=== PATIENT | female | born 1990 | race Caucasian/White ===

== ENCOUNTER 2020-05-18 16:29 | Emergency (ER) | payer MEDICAID, SELFPAY ==
[2020-05-18 16:38] VITALS: BP 134/78; PULSE 107; RESP 16; TEMP 36.6; O2SAT 98
--- NOTE | 2020-05-18 16:50 | W.ED.GENAD ---
Discharge Plan Disposition Patient Disposition: HOME Condition: Stable Discharge Details Clinical Impression: Acute streptococcal pharyngitis Primary Care Provider: Flora Esquivel ED Provider: Mecca Carlson Home Meds and New Rx's Prescriptions: New amoxicillin 500 mg capsule 500 mg PO BID 9 Days Qty: 18 RF: 0 Continued multivitamin Capsule 1 cap PO DAILY RF: 0 Discharge Instructions Instructions: Pharyngitis (ED), Strep Throat (ED) Additional Instructions: Drink plenty of fluids and get plenty of rest. Alternate tylenol and motrin as needed and directed for pain. Take antibiotics until finished. Follow-up with your primary care doctor in 1 week. Return to the emergency department with any worsening or new concerning symptoms. Stand Alone Forms: Work Release Discharge Data Discharge Date/Time-TO BE ENTERED AT DEPARTURE: 05/18/20 17:36 Discharge Physician: Mecca Carlson Medical Decision Making 30-year-old female presents with sore throat and feeling feverish since Sunday. Recent positive sick contact with strep. Rapid strep obtained upon arrival prior to my evaluation and positive. Patient appears uncomfortable but nontoxic. She has bilateral tonsillar edema, erythema and exudates. Uvula is midline and no evidence of peritonsillar abscess, submandibular swelling, drooling, trismus. Due to significant tonsillar edema, will give 1 dose of Decadron. Will obtain urine test and give a dose of amoxicillin here and for home as well as a prescription. Advised to follow up with the primary care doctor for re-evaluation. Usual and customary return precautions given prior to discharge. Medical Records Medical records reviewed: Yes I reviewed the patient's medical records. HPI General Mode of arrival: ambulatory. Date/Time Provider Initiated Documentation: 05/18/20 16:49. Limitations to Documentation: no limitations. Information obtained by: patient. HPI Narrative: Patient is a 30-year-old female who presents with sore throat since yesterday. She had a recent exposure to her boyfriend who was diagnosed with strep throat. She states she has been able to swallow but with pain. She denies any cough. Related Data Home Medications Medication Instructions Recorded Confirmed multivitamin 1 cap PO DAILY 03/11/19 05/18/20 amoxicillin 500 mg PO BID 9 Days #18 cap 05/18/20 Previous Rx's Medication Instructions Recorded amoxicillin 500 mg PO BID 9 Days #18 cap 05/18/20 Allergies Allergy/AdvReac Type Severity Reaction Status Date / Time nickel Allergy Intermediate rash Verified 05/18/20 16:43 General Stated Complaint: Sorethroat ONEYDA: 4 Review of Systems All systems reviewed & are unremarkable except as noted in HPI and below Constitutional Constitutional: Reports as per HPI, Denies chills and Denies fever(s) Eyes Eyes: Denies blurry vision ENT Ears, Nose, Mouth, and Throat: Denies dizziness, Reports sore throat and Denies throat swelling Cardiovascular Cardiovascular: Denies chest pain and Denies dyspnea Respiratory Respiratory: Denies cough and Denies dyspnea Gastrointestinal Gastrointestinal: Denies abdominal pain, Denies diarrhea and Denies vomiting Genitourinary Genitourinary: Denies hematuria and Denies dysuria Musculoskeletal Musculoskeletal: Denies back pain and Denies numbness Integumentary/Breasts Skin/Breast: Denies lesions and Denies rash Neurologic Neurologic: Denies dizziness, Denies localized weakness and Denies numbness Allergic/Immunologic Allergic/Immunologic: Denies throat swelling PFSH Medical History (Updated 05/18/20 @ 18:35 by Mecca Carlson DO) Mastodynia of left breast Surgical History (Updated 05/18/20 @ 18:35 by Mecca Carlson DO) No significant past surgical history Family History Father Unknown family medical history Mother Unknown family medical history Son Diabetes type 1 Social History Smoking/Tobacco Use Status: Current every day Tobacco: How many years used: 1 Smoking risk assessment performed?: Yes Alcohol Intake: current Alcohol Intake frequency: a few times a week Drug use: Never Do you feel safe at home: Yes Do you feel safe in your relationship?: Yes History History 4 Para Hx # Term Pregnancies 3 Multiple births Hx # Pregnancies Ectopic pregnancies AB induced 1 Hx Number of Living Children AB spontaneous Exam Const General: cooperative, healthy appearing and no acute distress HENMT Head: normal to inspection Ears: hearing grossly normal bilaterally, external ears normal and TM's normal bilaterally General nose exam: external nose normal Mouth: oral mucosae normal Throat: uvula midline and posterior oropharynx abnormal edema (Moderate to severe, near kissing), erythema and exudates Eyes General: appearance normal, both eyes and all related structures Neck Neck: normal visual inspection, no meningeal signs, trachea midline, supple, no anterior neck swelling and No submandibular swelling Resp Effort & Inspection: normal respiratory effort and able to speak in complete sentences Cardio Rate: regular rate Skin General skin exam: no rashes or lesions noted Neuro General: patient alert, patient awake and patient oriented x3 Motor: muscle tone normal throughout Extrem General: normal to inspection and full ROM Psych Appearance: grossly normal Affect: normal affect Course Vital Signs Vital signs: Vital Signs Temperature 97.9 F 05/18/20 16:38 Pulse 107 H 05/18/20 16:38 Respiratory Rate 16 05/18/20 16:38 Blood Pressure 134/78 05/18/20 16:38 Pulse Oximetry 98 05/18/20 16:38 Temperature 97.9 F 05/18/20 16:38 Temperature Source Skin 05/18/20 16:38 Pulse 107 H 05/18/20 16:38 Respiratory Rate 16 05/18/20 16:38 Respiratory Effort Non-Labored 05/18/20 16:44 Blood Pressure 134/78 05/18/20 16:38 Blood Pressure Position Sitting 05/18/20 16:38 Pulse Oximetry 98 05/18/20 16:38 Oxygen Delivery Method Room Air 05/18/20 16:38 Oxygen Flow Rate 0 05/18/20 16:38 Pain Level 8 05/18/20 16:38 Lab/Test Results Lab/Test Results: POC Strep Test-JOANIE(Rapid) Start: 05/18/20 16:44 Freq: Status: Active Protocol: Document 05/18/20 16:44 MCG (Rec: 05/18/20 16:44 [id number] Strep test-JOANIE(Rapid)-POC POC-Strep test-JOANIE (Rapid) Positive POC-Strep test-JOANIE (Rapid) Positive
[2020-05-18] MEDS: Amoxicillin 500 MG CAP PO ×2 (17:14)
[2020-05-18] MEDS: Dexamethasone 10 MG/ML VIAL PO (17:14)
== END 2020-05-18 17:36 | disposition home or self-care (01) ==
PROVIDERS: Emergency Provider Physician Assistant; PCP Physician Assistant Medical
DX: J02.0 Streptococcal pharyngitis (principal); B95.5 Unspecified streptococcus as the cause of diseases classified elsewhere; Z72.0 Tobacco use
CPT/HCPCS: 87880; 99283; J1100

== ENCOUNTER 2020-09-27 16:41 | Outpatient (REF) | payer MEDICAID, SELFPAY ==
[2020-09-29 13:29] LABS: Chlamydia Result Negative (Negative); GC Result Negative (Negative)
== END 2020-09-27 16:42 | disposition home or self-care (01) ==
LOC: LBN 16:41
PROVIDERS: PCP Physician Assistant Medical; Visit Provider Nurse Practitioner Women's Health
DX: Z11.3 Encounter for screening for infections with a predominantly sexual mode of transmission (principal)
CPT/HCPCS: 87491; 87591

== ENCOUNTER 2022-02-03 14:41 | Outpatient (REF) | payer MEDICAID, SELFPAY ==
[2022-02-03 21:25] LABS: Abs Immature Grans 0.02 10^3/uL (0.0-0.06); Absolute Basophil Count 0.09 10^3/uL (0.0-0.2); Absolute Eosinophil Count 0.59 10^3/uL (0.0-0.7); Absolute Lymphocyte Count 1.89 10^3/uL (1.2-3.4); Absolute Monocyte Count 0.64 10^3/uL (0.1-0.8); Absolute Neutrophil Count 4.61 10^3/uL (1.2-6.7); Basophils % 1.1; Eosinophils % 7.5; HCT 42.9 % (36.0-46.0); HGB 14.1 g/dL (11.2-15.7); Immature Grans % 0.3; Lymphocytes % 24.1; MCHC 32.9 % (32.0-36.0); MCV 88 fL (80-95); MPV 11.8 fL (8.0-11.0); Monocytes % 8.2; Neutrophils % 58.8; Platelet Count 314 10^3/uL (130-400); RBC 4.86 10^6/uL (3.93-5.22); RDW 12.3 % (11.7-14.6); RDW-SD 39.9 fL; WBC 7.84 10^3/uL (4.4-10.8)
[2022-02-03 21:58] LABS: ALT 20 U/L (14-59); AST 14 U/L (15-37); Albumin 4.1 g/dL (3.4-5.0); Alkaline Phosphatase 52 U/L (46-116); Anion Gap 7.4 mmol/L (3-11); BUN 9 mg/dL (7-18); Bilirubin, Total 0.6 mg/dL (0.2-1.0); CO2 27.6 mmol/L (21.0-32.0); CREATININE 0.7 mg/dL (0.55-1.02); Calcium 8.8 mg/dL (8.5-10.1); Chloride 104 mmol/L (98-107); Estimated GFR 117.77 (mL/min/1.73m2); Glucose 87 mg/dL (74-106); Potassium 4.2 mmol/L (3.5-5.1); Sodium 139 mmol/L (136-145); TSH (W/Ref FT4) 0.94 uIU/mL (0.36-3.74); Total Protein 7.8 g/dL (6.4-8.2)
[2022-02-06 11:18] LABS: Lyme Ab w Rflx to Lyme Confirm Negative (Negative)
[2022-02-08 17:15] LABS: Anaplasma phagocytophilum Negative (Negative); B. miyamotoi PCR Negative (Negative); Babesia divergens/MO-1 Negative (Negative); Babesia duncani Negative (Negative); Babesia microti Negative (Negative); Ehrlichia chaffeensis Negative (Negative); Ehrlichia ewingii/canis Negative (Negative); Ehrlichia muris eauclairensis Negative (Negative)
== END 2022-02-03 14:42 | disposition home or self-care (01) ==
LOC: LBN 14:41
PROVIDERS: PCP Physician Assistant Medical; Visit Provider Physician Assistant
DX: J02.9 Acute pharyngitis, unspecified (principal); R53.83 Other fatigue; R51.9 Headache, unspecified; M25.59 Pain in other specified joint; R79.89 Other specified abnormal findings of blood chemistry
CPT/HCPCS: 80053; 87798; 83036; 84443; 85025; 86618; 87070

== ENCOUNTER 2022-04-11 01:36 | Outpatient (CLI) | payer MEDICAID, SELFPAY ==
[2022-04-11] MEDS: Normal Saline Flush 10 ML SYR IVP (13:09)
[2022-04-11] MEDS: Gadoterate meglumine 20 ML SYRINGE 18 ML IVP (13:10)
--- NOTE | 2022-04-11 13:45 | DI.MRI_ITS ---
Exam(s) MR BRAIN WO/W EXAM: MR BRAIN WO/W CLINICAL HISTORY: Increased frequency of AU's, rapid vision changes,h53.9,r51.9 TECHNIQUE: Multiplanar multisequence MRI of the brain was performed. CONTRAST MATERIAL: IV Contrast: 18 mL of Dotarem contrast administered. COMPARISON: No exams were available for comparison FINDINGS: VENTRICLES AND EXTRA AXIAL SPACES: Normal in size and morphology for the patient's age. HEMORRHAGE: None. CEREBRAL PARENCHYMA: No focus of restricted diffusion to suggest acute infarct. No space-occupying le lola identified. MIDLINE SHIFT: None. BRAINSTEM/CEREBELLUM: Normal. CALVARIUM: Normal. ENHANCEMENT: No suspicious enhancement identified. VISUALIZED PARANASAL SINUSES/MASTOIDS: There is a small mucous retention cyst or polyp in the left ma xillary sinus. The sinuses are otherwise clear. [place] OF [place]: Normal flow void. PITUITARY GLAND: Unremarkable. OTHER FINDINGS: IMPRESSION: Unremarkable MRI of the brain. DATA REPOSITORY:
== END 2022-04-11 01:56 ==
LOC: DI 01:36
PROVIDERS: PCP Nurse Practitioner Family; Visit Provider Nurse Practitioner Family
DX: H53.9 Unspecified visual disturbance (principal); R51.9 Headache, unspecified
CPT/HCPCS: 70553

== ENCOUNTER 2022-05-01 15:46 | Outpatient (REF) | payer MEDICAID, SELFPAY ==
[2022-05-01 21:07] LABS: Bilirubin Negative (Negative); Blood Negative (Negative); Clarity Cloudy (Clear); Glucose Negative (Negative); Ketones Negative (Negative); Leukocyte Esterase Negative (Negative); Nitrite Negative (Negative); Urobilinogen 0.2 EU/dL (Up TO 0.2); pH 7.5 (5-8)
[2022-05-01 21:08] LABS: Abs Immature Grans 0.02 10^3/uL (0.0-0.06); Absolute Eosinophil Count 0.46 10^3/uL (0.0-0.7); Absolute Lymphocyte Count 2.03 10^3/uL (1.2-3.4); Absolute Neutrophil Count 5.42 10^3/uL (1.2-6.7); Basophils % 1.2; Eosinophils % 5.3; HCT 38.2 % (36.0-46.0); HGB 12.8 g/dL (11.2-15.7); Immature Grans % 0.2; Lymphocytes % 23.5; MCH 29.3 pg (27.0-33.0); MCHC 33.5 % (32.0-36.0); MCV 87 fL (80-95); MPV 11.5 fL (8.0-11.0); Neutrophils % 62.8; Platelet Count 302 10^3/uL (130-400); RBC 4.37 10^6/uL (3.93-5.22); RDW 11.9 % (11.7-14.6); RDW-SD 38.6 fL; WBC 8.63 10^3/uL (4.4-10.8)
[2022-05-01 21:19] LABS: ALT 22 U/L (14-59); AST 17 U/L (15-37); Albumin 4.3 g/dL (3.4-5.0); Alkaline Phosphatase 44 U/L (46-116); Anion Gap 8.1 mmol/L (3-11); BUN 9 mg/dL (7-18); Bilirubin, Total 0.8 mg/dL (0.2-1.0); CO2 27.9 mmol/L (21.0-32.0); CREATININE 0.9 mg/dL (0.55-1.02); Calcium 9.5 mg/dL (8.5-10.1); Chloride 106 mmol/L (98-107); Estimated GFR 87.11 (mL/min/1.73m2); Glucose 87 mg/dL (74-106); Potassium 4.4 mmol/L (3.5-5.1); Sodium 142 mmol/L (136-145); Total Protein 7.3 g/dL (6.4-8.2)
== END 2022-05-01 15:47 | disposition home or self-care (01) ==
LOC: LBN 15:46
PROVIDERS: PCP Nurse Practitioner Family; Visit Provider Physician Assistant
DX: R10.31 Right lower quadrant pain (principal); R39.89 Other symptoms and signs involving the genitourinary system
CPT/HCPCS: 80053; 81003; 85025

== ENCOUNTER 2022-05-02 11:12 | Outpatient (CLI) | payer MEDICAID, SELFPAY ==
--- NOTE | 2022-05-02 07:30 | DI.US_ITS ---
Exam(s) US RENAL EXAM: US RENAL CLINICAL HISTORY: right flank pain, R10.9. TECHNIQUE: Hernandez scale, color and spectral Doppler were used. COMPARISON: No exams were available for comparison FINDINGS: Renal size in cm: Right: 12.4. Left: 11.7. Echogenicity: Normal. Hydronephrosis: No. Cyst or mass: No. Nephrolithiasis: No. Other findings: None. Bladder:Normal. Ureteral jets: Right: Visualized and unremarkable. Left: Visualized and unremarkable. Prevoid vol:954 cc Postvoid vol:19.2 cc Renal color flow: Symmetric and within normal limits. IMPRESSION: Unremarkable examination. DATA REPOSITORY:
== END 2022-05-02 11:32 ==
LOC: DI 11:13
PROVIDERS: PCP Nurse Practitioner Family; Visit Provider Physician Assistant
DX: R10.31 Right lower quadrant pain (principal)
CPT/HCPCS: 76770

== ENCOUNTER 2022-06-13 09:09 | Emergency (ER) | payer MEDICAID, SELFPAY ==
[2022-06-13 09:12] VITALS: BP 123/76; PULSE 107; RESP 18; TEMP 37.1; O2SAT 97
--- NOTE | 2022-06-13 09:25 | ED.GENADUL_ITS ---
Discharge Plan Disposition Patient Disposition: Home Condition: Improving Discharge Details Clinical Impression: Exudative pharyngitis Primary Care Provider: Domenica Hamm ED Provider: Kevin Valdez Home Meds and New Rx's Prescriptions: New penicillin V potassium 500 mg tablet 500 mg PO TID 10 Days Qty: 30 0RF Cepacol Sore Throat (liu-men) 15-2.6 mg lozenge 1 poly mucous membrane Q2H PRN (Reason: sore throat) Qty: 16 1RF Continued multivitamin Capsule 1 cap PO DAILY bupropion HCl [Wellbutrin XL] 300 mg tablet extended release 24 hr 300 mg PO QAM Qty: 90 3RF bupropion HCl [Wellbutrin XL] 150 mg tablet extended release 24 hr 150 mg PO QAM Qty: 90 3RF Mirena 21 mcg/24 hours (8 yrs) 52 mg intrauterine device 1 device intrauterine ONCE Patient Comments: Placed on 09/27/2020 Rx Instructions: as a single dose Discharge Instructions Instructions: Pharyngitis (ED) Additional Instructions: Small, frequent sips of fluids and/or popsicles to maintain hydration today. Tylenol and/or ibuprofen as needed for pain. May use provided Cepacol lozenges as needed for comfort. Please take antibiotics as prescribed. As discussed, you were given oral dexamethasone which will continue to work through today and tomorrow. We will call you with your [place] test result Return for any acute concern. Medical Decision Making 32-year-old female with 2 days of sore throat presents with erythema, exudate, symmetric swelling and no evidence of deviation of the the midline structures. Most consistent with an exudative pharyngitis. Her rapid strep test was negative, a Monospot was obtained. Given dexamethasone p.o.. There is a strong suspicion for exudative pharyngitis and will place on a course of penicillin. She is stable and appropriate for discharge. I will call her with the mono result. (Negative). HPI General Mode of arrival: ambulatory . Date/Time Provider Initiated Documentation: 06/13/22 09:09 . Limitations to Documentation: no limitations . Information obtained by: patient . History of Present Illness 32 year old F presents to the emergency department with the chief complaint of Sore throat for 2 days, described as moderate and similar to prior episodes, Quality is described as dull and constant, and is localized to the mouth. Patient reports no radiation. Patient started experiencing this day(s) and it has been constant. No relieving factors improve symptom(s), No exacerbating factors reported . Patient notes fever/chills and loss of appetite; denies cough, headaches, nausea/vomiting and shortness of breath. Patient did receive the following treatments prior to arrival, none Related Data Home Medications Medication Instructions Recorded Confirmed multivitamin 1 cap PO DAILY 03/11/19 06/13/22 levonorgestrel 21 mcg/24 hours (8 1 device intrauterine ONCE 05/30/22 06/13/22 yrs) 52 mg intrauterine device (Mirena) bupropion HCl 150 mg 24 hr tablet, 150 mg PO QAM #90 tabs 06/12/22 06/13/22 extended release (Wellbutrin XL) bupropion HCl 300 mg 24 hr tablet, 300 mg PO QAM #90 tabs 06/12/22 06/13/22 extended release (Wellbutrin XL) benzocaine 15 mg-menthol 2.6 mg 1 poly mucous membrane Q2H PRN sore 06/13/22 lozenges (Cepacol Sore Throat throat #16 ea (benzocaine-menthol)) penicillin V potassium 500 mg 500 mg PO TID 10 days #30 tabs 06/13/22 tablet Previous Rx's Medication Instructions Recorded bupropion HCl 150 mg 24 hr tablet, 150 mg PO QAM #90 tabs 06/12/22 extended release (Wellbutrin XL) bupropion HCl 300 mg 24 hr tablet, 300 mg PO QAM #90 tabs 06/12/22 extended release (Wellbutrin XL) benzocaine 15 mg-menthol 2.6 mg 1 poly mucous membrane Q2H PRN sore 06/13/22 lozenges (Cepacol Sore Throat throat #16 ea (benzocaine-menthol)) penicillin V potassium 500 mg 500 mg PO TID 10 days #30 tabs 06/13/22 tablet Allergies Allergy/AdvReac Type Severity Reaction Status Date / Time nickel Allergy Intermediate rash Verified 06/13/22 09:17 General Stated Complaint: Sorethroat ONEYDA: 4 Review of Systems Narrative: No cough, 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 Denies vomiting or diarrhea. 7 systems were reviewed [facility] All Active Problems (Updated 06/13/22 @ 09:28 by Kevin Valdez MD) Exudative pharyngitis (Acute) Numerous skin moles (Acute) Breast mass (Acute) Anxiety (Chronic) Depression (Chronic) Vision changes (Acute) Frequent headaches (Acute) Otitis externa of right ear (Acute) IUD surveillance (Acute 09/27/20) Mirena Medical History Mastodynia of left breast Surgical History No significant past surgical history Family History Father Alcohol use disorder Mother Alcohol use disorder Cervical cancer Son Diabetes type 1 Sister Depression Substance use disorder Sister No problems noted. Brother No problems noted. Son No problems noted. Daughter No problems noted. Social History Smoking/Tobacco Use Status: Current every day Tobacco Type: e-cigarettes Tobacco: How many years used: 1 Quit status: considering quitting Second Hand Exposure: Yes Smoking risk assessment performed?: Yes Alcohol Intake: former Drug use: Never Caregiver/Support person: No Household members: children Communication Needs: Corrective Lenses Do you need help understanding health information?: Rarely Pets and animals: Yes Pets and animals: cat(s) and dog(s) Sexually active: Yes Do you think of yourself as: bisexual What is your relationship status?: How often do you talk on the phone with friends or family?: never How often do you get together with friends or relatives?: once per week How often do you attend latter day or pentecostalism services?: decline to answer Do you belong to any clubs or organized social groups?: no Panel score (0-1 are the most socially isolated patients): 0 What type of physical activity do you participate in: aerobic Duration: 15-30 minutes/day Frequency: 1-2 times per week Suzanne/Advent: No preference Seatbelt use: never Helmet use: No 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 Pleasant, well groomed, interactive. HEAD: Normocephalic, atraumatic ENT: Mucous membranes moist, oropharynx with symmetrically enlarged tonsils, erythematous, overlying white exudate, the uvula is midline, there is no asymmetry, tympanic membranes visualized and clear bilaterally, External ear exam unremarkable EYES: PERRL, EOMI NECK: Full ROM, no STEPH, no menigismus CHEST/RESP: Nontender, clear to auscultation bilateral, no wheeze/rhonchi/rales CARDIOVASCULAR: RRR, no murmur, rub silvia. 2+ Rad pulse bilateral Neuro: Grossly normal neurologic exam, conversant, interactive. Psych: Speech fluent, thoughts congruent, affect normal Course Vital Signs Vital signs: Vital Signs Temperature 37.1 C 06/13/22 09:12 Pulse 107 H 06/13/22 09:12 Respiratory Rate 18 06/13/22 09:12 Blood Pressure 123/76 06/13/22 09:12 Pulse Oximetry 97 06/13/22 09:12 Temperature 37.1 C 06/13/22 09:12 Temperature Source Oral 06/13/22 09:12 Pulse 107 H 06/13/22 09:12 Respiratory Rate 18 06/13/22 09:12 Respiratory Effort Normal, Non-Labored 06/13/22 09:18 Blood Pressure 123/76 06/13/22 09:12 Blood Pressure Position Sitting 06/13/22 09:12 Pulse Oximetry 97 06/13/22 09:12 Oxygen Delivery Method Room Air 06/13/22 09:12 Oxygen Flow Rate 0 06/13/22 09:12 Pain Level 5 06/13/22 09:12
[2022-06-13] MEDS: Dexamethasone 10 MG/ML VIAL PO (09:32)
[2022-06-13 09:51] VITALS: BP 123/76; PULSE 107; RESP 18; TEMP 37.1; O2SAT 97
[2022-06-13 10:07] LABS: Mono Screening Negative (Negative)
== END 2022-06-13 09:53 | disposition home or self-care (01) ==
PROVIDERS: Emergency Provider Emergency Medicine; PCP Nurse Practitioner Family
DX: J02.9 Acute pharyngitis, unspecified (principal)
CPT/HCPCS: 87880; 99283; 86308; 87081; J1100

== ENCOUNTER 2022-06-15 01:15 | Outpatient (CLI) | payer MEDICAID, SELFPAY ==
--- NOTE | 2022-06-15 07:22 | DI.US_ITS ---
Exam(s) MG MAMMO DIAGNOSTIC BI US BREAST LT LIMITED EXAM: MG MAMMO DIAGNOSTIC BI CLINICAL HISTORY: lt breast mass, n63.0 (11-12 oclock). COMPARISON: No exams were available for comparison . baseline examination. TECHNIQUE: Craniocaudal and mediolateral oblique Full Field Digital Mammography views both breasts w ith Computer Aided Diagnosis followed by Tomosynthesis and left breast ultrasound. FINDINGS: Mammography/Tomosynthesis: Masses/Architectural Distortion: None seen. Microcalcifications: No suspicious pleomorphic-type are seen. Skin Thickening/Nipple Retraction: None. Left breast US: Echotexture: Normal appearance of the glandular tissue. Shadowing: No suspicious foci. Cyst: None. Solid lesions: None seen. Ductal dilation: None. IMPRESSION: 1. No evidence of malignancy is noted. 2. Unless there is more urgent need, follow-up screening mammography is recommended, as per [place] [employer] guidelines. BI-RADS Category 1 - Negative Breast Density - Category C - Heterogeneously dense Breast density category C or D implies that the patient has dense breast tissue. Dense breast tissue is very common and is not abnormal but dense breast tissue can make it harder to find cancer on a ma mmogram. Also, dense breast tissue may increase their breast cancer risk. This information about the result of the mammogram report was provided to the patient to raise their awareness. Use this report when you speak with the patient about their risks for breast cancer, which includes their family hist ory. At that time, you may recommend for more screening tests (Ultrasound or MRI) as they might be us eful based on their risk. A negative radiographic report should not delay biopsy if a dominant or clinically suspicious mass is present. Up to ten percent of cancers are not identified on mammography. A negative report may reinforce clinical impression. Adenosis and dense breasts may obscure an underlying neoplasm. False positive reports average 6 to 10%. Patient will receive a letter notifying them of these results.
--- NOTE | 2022-06-15 13:40 | DI.MAMMO_ITS ---
Exam(s) MAMMO DIAGNOSTIC BI EXAM: MAMMO DIAGNOSTIC BI CLINICAL HISTORY: lt breast mass, n63.0 (11-12 oclock). COMPARISON: No exams were available for comparison . baseline examination. TECHNIQUE: Craniocaudal and mediolateral oblique Full Field Digital Mammography views both breasts w ith Computer Aided Diagnosis followed by Tomosynthesis and left breast ultrasound. FINDINGS: Mammography/Tomosynthesis: Masses/Architectural Distortion: None seen. Microcalcifications: No suspicious pleomorphic-type are seen. Skin Thickening/Nipple Retraction: None. Left breast US: Echotexture: Normal appearance of the glandular tissue. Shadowing: No suspicious foci. Cyst: None. Solid lesions: None seen. Ductal dilation: None. IMPRESSION: 1. No evidence of malignancy is noted. 2. Unless there is more urgent need, follow-up screening mammography is recommended, as per [place] [employer] guidelines. BI-RADS Category 1 - Negative Breast Density - Category C - Heterogeneously dense Breast density category C or D implies that the patient has dense breast tissue. Dense breast tissue is very common and is not abnormal but dense breast tissue can make it harder to find cancer on a ma mmogram. Also, dense breast tissue may increase their breast cancer risk. This information about the result of the mammogram report was provided to the patient to raise their awareness. Use this report when you speak with the patient about their risks for breast cancer, which includes their family hist ory. At that time, you may recommend for more screening tests (Ultrasound or MRI) as they might be us eful based on their risk. A negative radiographic report should not delay biopsy if a dominant or clinically suspicious mass is present. Up to ten percent of cancers are not identified on mammography. A negative report may reinforce clinical impression. Adenosis and dense breasts may obscure an underlying neoplasm. False positive reports average 6 to 10%. Patient will receive a letter notifying them of these results.
== END 2022-06-15 01:35 ==
LOC: DI 01:16
PROVIDERS: PCP Nurse Practitioner Family; Visit Provider Advanced Practice Midwife
DX: N63.22 Unspecified lump in the left breast, upper inner quadrant (principal)
CPT/HCPCS: 76642; 77062; 77066; G0279

== ENCOUNTER → 2022-12-06 02:14 | Outpatient (CLI) | payer MEDICAID, SELFPAY ==
--- NOTE | 2022-12-06 15:00 | DI.MRI_ITS ---
Exam(s) MR ANGIO BRAIN WO CLINICAL HISTORY: ? aneurysm, AU w/orgasm,G44.82. TECHNIQUE: Multiplanar multisequence MRA of the brain was performed. COMPARISON: MR MR BRAIN WO/W from 04/11/2022 FINDINGS: Carotid Arteries: No aneurysm, occlusion or significant stenosis. Anterior Cerebral Arteries: Right: No aneurysm, occlusion or significant stenosis. Left: No aneurysm, occlusion or significant stenosis. Middle Cerebral Arteries: Right: No aneurysm, occlusion or significant stenosis. Left: No aneurysm, occlusion or significant stenosis. Posterior Cerebral Arteries: Arise predominantly from the posterior communicating arteries which is a normal variant. Right: No aneurysm, occlusion or significant stenosis. Left: No aneurysm, occlusion or significant stenosis. Vertebral Arteries: Right: No aneurysm, occlusion or significant stenosis. Left: No aneurysm, occlusion or significant stenosis. Basilar Artery: No aneurysm, occlusion or significant stenosis. IMPRESSION: Normal MRA examination of the [place]. DATA REPOSITORY:
== END ==
PROVIDERS: PCP Nurse Practitioner Family; Visit Provider Nurse Practitioner Adult Health
DX: G44.82 Headache associated with sexual activity (principal)
CPT/HCPCS: 70544